=== PATIENT | female | born 1985 | race Caucasian/White ===

== ENCOUNTER → 2019-12-20 13:15 | Observation (INO) ==
[2019-12-20 13:25] LABS: Bilirubin,Urine Negative (Negative); Blood,Urine Negative (Negative); Clarity,Urine Cloudy (Clear); Color,Urine Yellow (Yellow); Glucose,Urine (UA) Normal (Normal); Ketones,Urine Negative (Negative); Leukocyte Esterase,Urine Trace (Negative); Nitrite,Urine Negative (Negative); Protein,Urine Negative (Neg-Trace); Specific Gravity,Urine 1.013 (1.010-1.025); Urobilinogen,Urine Normal (Normal)
[2019-12-20 13:28] LABS: Bacteria,Urine None Seen per hpf (None-Few); Hyaline Casts,Urine None Seen per lpf (None-Few); RBC,Urine 0-3 per hpf (0-3); Squamous Epithelial Cell,Urine Many per lpf (None-Few)
[2019-12-20 13:48] LABS: Amorphous Sediment,Urine Few per hpf (Few)
== END | disposition home or self-care (01) ==
LOC: 1NENULAB
PROVIDERS: ADMIT Advanced Practice Midwife; ATTEND Advanced Practice Midwife

== ENCOUNTER 2020-04-13 06:00 | Inpatient (IN) ==
[2020-04-13] MEDS ORDERED: Naloxone 0.4 MG/ML INJ IVP PRN (06:38)
[2020-04-13] MEDS ORDERED: Ondansetron 4 MG/2 ML VIAL IVP PRN (06:38)
[2020-04-13] MEDS ORDERED: miSOPROStoL 25 MCG TABLET VG PRN (06:38)
[2020-04-13] MEDS ORDERED: Lidocaine 1% 20 ML MDV INFILT PRN (06:38)
[2020-04-13] MEDS ORDERED: *HR* FentaNYL (PF) 100 MCG/2 ML VIAL IVP PRN (06:38)
[2020-04-13] MEDS ORDERED: Famotidine 20 MG/2 ML VIAL IVP PRN (06:38)
[2020-04-13] MEDS ORDERED: Metoclopramide 10 MG/2 ML VIAL IVP PRN (06:38)
[2020-04-13 07:21] LABS: Basophils # 0.1 K/mcL (0.0-0.2); Basophils % 0.4 %; Eosinophils # 0.1 K/mcL (0.0-0.6); Eosinophils % 0.9 %; Hematocrit 34.8 % (35.3-44.9); Hemoglobin 11.8 g/dL (11.5-15.4); Immature Granulocytes % 0.7 % (0-4); Lymphocytes # 2.6 K/mcL (0.6-4.6); Lymphocytes % 18.9 %; Mean Corpuscular HGB Conc 33.9 g/dL (31.6-35.5); Mean Corpuscular Hemoglobin 30.8 pg (28.0-33.3); Mean Corpuscular Volume 90.9 fL (83.0-100.0); Mean Platelet Volume 10.1 fL (9.4-12.4); Monocytes # 1.2 K/mcL (0.0-1.3); Monocytes % 8.7 %; Neutrophils # 9.7 K/mcL (1.6-8.9); Platelet Count 395 K/mcL (140-400); Red Blood Count 3.83 M/mcL (3.82-4.97); Red Cell Distribution Width 14.2 % (11.5-14.5); Segmented Neutrophils % 70.4 %; White Blood Count 13.7 K/mcL (4.3-11.1)
[2020-04-13 07:36] LABS: Protein/Creatinine Ratio,Urine 0.2 mg/mg (0.00-0.20)
[2020-04-13 07:41] LABS: Alanine Aminotransferase 14 Units/L (7-52); Aspartate Amino Transferase 19 Units/L (13-39); BUN/Creatinine Ratio 16 (6-26); Blood Urea Nitrogen 10 mg/dL (6-20); Lactate Dehydrogenase 139 Units/L (140-271); Uric Acid 3.4 mg/dL (2.3-7.6); eGFR For African Americans > 60 (> 60); eGFR For Non-African Americans > 60 (> 60)
[2020-04-13] MEDS ORDERED: EPHEDrine 50 MG/ML VIAL IVP PRN (07:50)
[2020-04-13 08:01] LABS: Amphetamine Screen,Urine Negative ng/mL (Cutoff=1000); Barbiturate Screen,Urine Negative ng/mL (Cutoff=200); Benzodiazepines Screen,Urine Negative ng/mL (Cutoff=300); Cannabinoid Screen,Urine Negative ng/mL (Cutoff = 50); Cocaine Screen,Urine Negative ng/mL (Cutoff= 300); Opiate Screen,Urine Negative ng/mL (Cutoff=300); Phencyclidine Screen,Urine Negative ng/mL (Cutoff=25)
[2020-04-13] MEDS ORDERED: miSOPROStoL 25 MCG TABLET PO PRN (08:12)
[2020-04-13] MEDS: Ringers Solution, Lactated 1,000 ML IVC SCH ×2 (12:48→14:47)
[2020-04-13] MEDS ORDERED: Oxytocin 20 units/ LR 1000 mL 20 UNIT/1,000 ML BAG IVC SCH ×2 (13:00→23:38)
[2020-04-13] MEDS: Epidural Premix (fent/bupiv) 110 ML EP SCH ×2 (13:09→19:15)
[2020-04-13] MEDS ORDERED: Insulin LISPRO 300 UNITS/3 ML VIAL SQ STA (21:05)
[2020-04-13] MEDS ORDERED: Measles/Mumps/Rubella Vacc 0.5 ML VIAL SQ PRN (23:38)
[2020-04-13] MEDS ORDERED: Ibuprofen 600 MG TABLET PO PRN (23:38)
[2020-04-13] MEDS ORDERED: Rho Immune Globulin 1,500 UNIT SYRINGE IM PRN (23:38)
[2020-04-14] MEDS: valACYclovir 500 MG TABLET PO SCH ×2 (07:48→20:25)
[2020-04-14 08:15] LABS: Basophils # 0.1 K/mcL (0.0-0.2); Basophils % 0.3 %; Eosinophils # 0.1 K/mcL (0.0-0.6); Eosinophils % 0.4 %; Hematocrit 32.8 % (35.3-44.9); Hemoglobin 10.9 g/dL (11.5-15.4); Immature Granulocytes % 0.6 % (0-4); Lymphocytes # 2.5 K/mcL (0.6-4.6); Lymphocytes % 14.7 %; Mean Corpuscular HGB Conc 33.2 g/dL (31.6-35.5); Mean Corpuscular Hemoglobin 30.5 pg (28.0-33.3); Mean Corpuscular Volume 91.9 fL (83.0-100.0); Monocytes # 1.1 K/mcL (0.0-1.3); Monocytes % 6.7 %; Neutrophils # 13.1 K/mcL (1.6-8.9); Platelet Count 360 K/mcL (140-400); Red Blood Count 3.57 M/mcL (3.82-4.97); Red Cell Distribution Width 14.1 % (11.5-14.5); Segmented Neutrophils % 77.3 %; White Blood Count 16.9 K/mcL (4.3-11.1)
[2020-04-14] MEDS ORDERED: Prenatal Vit/FA 1 EACH TABLET PO SCH (09:00)
[2020-04-14] MEDS: Acetaminophen 325 MG TABLET PO PRN ×2 (10:43→20:25)
[2020-04-14 21:23] VITALS: BP 130/88
== END 2020-04-14 22:50 | disposition home or self-care (01) | DRG 560 ==
LOC: 1NENULAB 06:37 → 1NENUOBS 23:37
PROVIDERS: ADMIT Student in an Organized Health Care Education/Training Program; ATTEND Student in an Organized Health Care Education/Training Program